=== PATIENT | female | born 1960 | race Caucasian/White ===

== ENCOUNTER 2017-12-28 06:53 | Emergency (ER) | payer BC ==
[2017-12-28] MEDS ORDERED: NS 0.9% 1000 ML* 1,000 ML IV ONE (07:27)
[2017-12-28 07:53] LABS: INR 0.9 (0.77-1.02)
[2017-12-28 07:57] LABS: Hematocrit 40 % (35-47); Hemoglobin 14.3 g/dl (12.0-16.0); Mean Corpuscular HGB Conc 36 g/dl (31-36); Mean Corpuscular Hemoglobin 33 pg (27-31); Mean Corpuscular Volume 93 fL (80-97); Mean Platelet Volume 7.2 um3 (7.4-10.4); Platelet Count 271 10^3/ul (150-450); Red Blood Count 4.32 10^6/ul (4.00-5.40); Red Cell Distribution Width 13 % (10.5-15); White Blood Count 5.2 10^3/ul (3.5-10.8)
[2017-12-28 07:58] LABS: EGFR Non-African American 63.3 (>60)
[2017-12-28 08:02] LABS: Urine Appearance Clear; Urine Blood Negative (Negative); Urine Color Straw; Urine Ketones Negative (Negative); Urine Protein Negative (Negative); Urine Specific Gravity 1.004 (1.010-1.030); Urine Urobilinogen Negative (Negative)
[2017-12-28 09:06] LABS: ABS Basophils 0.1 10^3/ul (0-0.2); ABS Eosinophils 0.1 10^3/ul (0-0.6); ABS Lymphocytes 1.8 10^3/ul (1.0-4.8); ABS Monocytes 0.5 10^3/ul (0-0.8); ABS Neutrophils 2.8 10^3/ul (1.5-7.7); ABS Nucleated RBC 0 10^3/ul; Lymphocyte % 34.9 % (25-47)
[2017-12-28 09:07] LABS: Eosinophil % 1.3 % (0-6); Nucleated Red Blood Cells % 0.1
[2017-12-28] MEDS ORDERED: Iohexol 300* (CONTRAST) 10 ML SDV IV ONE (09:37)
--- NOTE | 2017-12-28 10:20 | RAD ---
INDICATION: Pelvic pain COMPARISON: None TECHNIQUE: Longitudinal and transverse transabdominal scans of the pelvis were obtained. FINDINGS: Uterus: The uterus is normal in size. There are no focal masses. The uterus measures 7.5 x 2.8 x 4.2 cm. Endometrial thickness: The endometrial thickness is measured at 0.3 cm. . Free fluid: There is no significant free fluid . Ovaries: The ovaries are normal in size. The right ovary measures 2.5 x 1.6 x 1.9 cm. The left ovary measures 2.2 x 1.9 x 1.1 cm. . Doppler interrogation demonstrates flow to each ovary. Other: None IMPRESSION: NORMAL STUDY.
--- NOTE | 2017-12-28 10:27 | RAD ---
INDICATION: Lower abdominal pain COMPARISON: None TECHNIQUE: Axial source images were obtained from the hemidiaphragms to the symphysis pubis following administration of oral and intravenous contrast. 91 mL Omnipaque 300 was utilized. Coronal and sagittal reconstructed images were acquired. Lung bases: The lung bases are clear. Liver: The liver is normal in size. There are no masses. There is no ductal dilatation. Gallbladder: There are no calcified gallstones. There is no evidence of wall thickening or pericholecystic fluid. Spleen: The spleen is normal in size. There are no masses. Pancreas: There is no focal pancreatic mass or ductal dilatation. Adrenal glands: There is no evidence of adrenal mass. Kidneys: The kidneys are normal in size and position. There are prompt nephrograms and there is prompt excretion bilaterally. There are no renal parenchymal masses. There is no evidence of nephrolithiasis. Adenopathy: There is no evidence of adenopathy by size criteria. Fluid collections: There are no free or localized fluid collections. Vessels:There are no significant atherosclerotic changes involving the aorta. There is no focal aneurysm. The iliac vessels are normal in caliber. The IVC appears normal. GI tract: There are no acute CT bowel findings. There is no obstruction. The stomach and small bowel appear normal. There are no acute CT abnormalities the colon. There is mild colonic redundancy. There are scant diverticula without CT findings of acute diverticulitis. Pelvic organs: The uterus and adnexa appear normal Bladder: There are no bladder masses. Abdominal and pelvic soft tissues: The extraperitoneal abdominal and pelvic soft tissues appear normal.. Osseous structures: There are no acute osseous findings. Other: None IMPRESSION: NO ACUTE CT FINDINGS. NO MASS OR INFLAMMATORY CHANGES.
[2017-12-28 11:52] VITALS: BP 119/77
--- NOTE | 2017-12-28 12:59 | ED ---
Tomi Bush Julia, scribed for Wil Vera MD on 12/28/17 at 0737 . Abdominal Pain/Female - HPI Summary HPI Summary: This patient is a 57 year old F presenting to [facility] with a chief complaint of constant lower abdominal pain since 12/25/17. Pain described as cramping and achy , that moves throughout her lower abdomen. Pain is 6/10 at worst, and currently 4/10. Reports urinary frequency. Denies burning with urination, back pain, changes in appetite, bloody stool, fever, and chills. Pain unchanged by walking. Symptoms are not worsened or relieved by anything. She has been taking Ciprofloxacin since 12/26/17 because she suspected a UTI, since current symptoms are similar. She states Ciprofloxacin typically works, but has not recently relieved symptoms. She reports loose stools that began after taking Ciprofloxacin. Denies previous abdominal surgeries. - History of Current Complaint Chief Complaint: EDAbdPain Stated Complaint: ABD PAIN Time Seen by Provider: 12/28/17 07:17 Hx Obtained From: Patient Onset/Duration: Lasting Days Timing: Constant Severity Initially: Mild Severity Currently: Mild Pain Intensity: 4 Pain Scale Used: 0-10 Numeric Location: Suprapubic, Other - lower Radiates: No Character: Cramping Aggravating Factor(s): Nothing Alleviating Factor(s): Nothing Associated Signs and Symptoms: Positive: Urinary Symptoms Simlar Episode/Dx as:: UTI Allergies/Adverse Reactions: Allergies Allergy/AdvReac Type Severity Reaction Status Date / Time Sulfa (Sulfonamide Allergy Rash Verified 12/28/17 07:01 Antibiotics) Home Medications: Home Medications Ciprofloxacin HCl [Cipro] 250 mg PO BID 12/28/17 [History Confirmed 12/28/17] PMH/Surg Hx/FS Hx/Imm Hx Endocrine/Hematology History: Denies: Hx Diabetes, Hx Thyroid Disease Cardiovascular History: Denies: Hx Hypertension, Hx Pacemaker/ICD Respiratory History: Denies: Hx Asthma, Hx Chronic Obstructive Pulmonary Disease (COPD) GI History: Denies: Hx Ulcer Sensory History: Reports: Hx Contacts or Glasses - CONTACTS MOSTLY, BUT DOES WEAR GLASSESS Denies: Hx Hearing Aid Opthamlomology History: Reports: Hx Contacts or Glasses - CONTACTS MOSTLY, BUT DOES WEAR GLASSESS Psychiatric History: Denies: Hx Panic Disorder - Cancer History Cancer Type, Location and Year: [facility] 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 SKIN CANCER REOMVED - [facility]IP Hx Anesthesia Reactions: No Infectious Disease History: No Infectious Disease History: Reports: Hx Shingles - 2007 Denies: Hx Clostridium Difficile, Hx Hepatitis, Hx Human Immunodeficiency Virus (HIV), Hx of Known/Suspected MRSA, Hx Tuberculosis, Hx Known/Suspected VRE , Hx Known/Suspected VRSA, History Other Infectious Disease, Traveled Outside the [place] in Last 30 Days - Family History Known Family History: Positive: Other - positive FM for ecchymosis, mother - colon CA - Social History Alcohol Use: Occasionally Substance Use Type: Reports: None Smoking Status (MU): Never Smoked Tobacco Review of Systems Negative: Fever, Chills Gastrointestinal: Negative - bloody stool and changes in appetite Positive: Abdominal Pain, Diarrhea - "loose stool". Negative: Vomiting, Nausea Positive: frequency. Negative: burning, dysuria Negative: Myalgia All Other Systems Reviewed And Are Negative: Yes Physical Exam - Summary Physical Exam Summary: General: well-appearing, no pain distress Skin: warm, color reflects adequate perfusion, dry Head: normal Eyes: EOMI, JERROD ENT: normal Neck: supple, nontender Respiratory: CTA, breath sounds present Cardiovascular: RRR Abdomen: soft, mild tenderness LLQ Bowel: present Musculoskeletal: normal, strength/ROM intact Neurological: sensory/motor intact, A&O x3 Psychological: affect/mood appropriate Triage Information Reviewed: Yes Vital Signs On Initial Exam: Initial Vitals Temp Pulse Resp BP Pulse Ox 99.2 F 80 18 160/83 99 12/28/17 06:54 12/28/17 06:54 12/28/17 06:54 12/28/17 06:54 12/28/17 06:54 Vital Signs Reviewed: Yes Diagnostics - Vital Signs Vital Signs Temp Pulse Resp BP Pulse Ox 12/28/17 06:54 99.2 F 80 18 160/83 99 - Laboratory Lab Results: Lab Results 12/28/17 12/28/17 12/28/17 Range/Units 07:33 07:33 07:33 WBC 5.2 (3.5-10.8) 10^3/ul RBC 4.32 (4.00-5.40) 10^6/ul Hgb 14.3 (12.0-16.0) g/dl Hct 40 (35-47) % MCV 93 (80-97) fL MCH 33 H (27-31) pg MCHC 36 (31-36) g/dl RDW 13 (10.5-15) % Plt Count 271 (150-450) 10^3/ul MPV 7.2 L (7.4-10.4) um3 Neut % (Auto) 53.2 (38-83) % Lymph % (Auto) 34.9 (25-47) % Mcintosh % (Auto) 9.5 H (0-7) % Eos % (Auto) 1.3 (0-6) % Baso % (Auto) 1.1 (0-2) % Absolute Neuts (auto) 2.8 (1.5-7.7) 10^3/ul Absolute Lymphs (auto) 1.8 (1.0-4.8) 10^3/ul Absolute Monos (auto) 0.5 (0-0.8) 10^3/ul Absolute Eos (auto) 0.1 (0-0.6) 10^3/ul Absolute Basos (auto) 0.1 (0-0.2) 10^3/ul Absolute Nucleated RBC 0 10^3/ul Nucleated RBC % 0.1 INR (Anticoag Therapy) 0.90 (0.77-1.02) APTT 30.2 (26.0-36.3) seconds Sodium 135 (135-145) mmol/L Potassium 3.8 (3.5-5.0) mmol/L Chloride 100 L (101-111) mmol/L Carbon Dioxide 26 (22-32) mmol/L Anion Gap 9 (2-11) mmol/L BUN 11 (6-24) mg/dL Creatinine 0.91 (0.51-0.95) mg/dL Est GFR ( Amer) 76.6 (>60) Est GFR (Non-Af Amer) 63.3 (>60) BUN/Creatinine Ratio 12.1 (8-20) Glucose 97 (70-100) mg/dL Lactic Acid (0.5-2.0) mmol/L Calcium 9.2 (8.6-10.3) mg/dL Total Bilirubin 0.80 (0.2-1.0) mg/dL AST 26 (13-39) U/L ALT 17 (7-52) U/L Alkaline Phosphatase 45 (34-104) U/L C-Reactive Protein < 1.00 (<8.01) mg/L Total Protein 6.6 (6.4-8.9) g/dL Albumin 4.4 (3.2-5.2) g/dL Globulin 2.2 (2-4) g/dL Albumin/Globulin Ratio 2.0 (1-3) Lipase < 10 L (11.0-82.0) U/L Urine Color Urine Appearance Urine pH (5-9) Ur Specific [place] (1.010-1.030) Urine Protein (Negative) Urine Ketones (Negative) Urine Blood (Negative) Urine Nitrate (Negative) Urine Bilirubin (Negative) Urine Urobilinogen (Negative) Ur Leukocyte Esterase (Negative) Urine Glucose (Negative) 12/28/17 12/28/17 Range/Units 07:33 07:52 WBC (3.5-10.8) 10^3/ul RBC (4.00-5.40) 10^6/ul Hgb (12.0-16.0) g/dl Hct (35-47) % MCV (80-97) fL MCH (27-31) pg MCHC (31-36) g/dl RDW (10.5-15) % Plt Count (150-450) 10^3/ul MPV (7.4-10.4) um3 Neut % (Auto) (38-83) % Lymph % (Auto) (25-47) % Mcintosh % (Auto) (0-7) % Eos % (Auto) (0-6) % Baso % (Auto) (0-2) % Absolute Neuts (auto) (1.5-7.7) 10^3/ul Absolute Lymphs (auto) (1.0-4.8) 10^3/ul Absolute Monos (auto) (0-0.8) 10^3/ul Absolute Eos (auto) (0-0.6) 10^3/ul Absolute Basos (auto) (0-0.2) 10^3/ul Absolute Nucleated RBC 10^3/ul Nucleated RBC % INR (Anticoag Therapy) (0.77-1.02) APTT (26.0-36.3) seconds Sodium (135-145) mmol/L Potassium (3.5-5.0) mmol/L Chloride (101-111) mmol/L Carbon Dioxide (22-32) mmol/L Anion Gap (2-11) mmol/L BUN (6-24) mg/dL Creatinine (0.51-0.95) mg/dL Est GFR ( Amer) (>60) Est GFR (Non-Af Amer) (>60) BUN/Creatinine Ratio (8-20) Glucose (70-100) mg/dL Lactic Acid 0.7 (0.5-2.0) mmol/L Calcium (8.6-10.3) mg/dL Total Bilirubin (0.2-1.0) mg/dL AST (13-39) U/L ALT (7-52) U/L Alkaline Phosphatase (34-104) U/L C-Reactive Protein (<8.01) mg/L Total Protein (6.4-8.9) g/dL Albumin (3.2-5.2) g/dL Globulin (2-4) g/dL Albumin/Globulin Ratio (1-3) Lipase (11.0-82.0) U/L Urine Color Straw Urine Appearance Clear Urine pH 6.0 (5-9) Ur Specific [place] 1.004 L (1.010-1.030) Urine Protein Negative (Negative) Urine Ketones Negative (Negative) Urine Blood Negative (Negative) Urine Nitrate Negative (Negative) Urine Bilirubin Negative (Negative) Urine Urobilinogen Negative (Negative) Ur Leukocyte Esterase Negative (Negative) Urine Glucose Negative (Negative) Result Diagrams: 12/28/17 07:33 12/28/17 07:33 Lab Statement: Any lab studies that have been ordered have been reviewed, and results considered in the medical decision making process. - CT A/P CT Interpretation Completed By: Radiologist - NO ACUTE CT FINDINGS. NO MASS OR INFLAMMATORY CHANGES. ED Physician has reviewed this report. - Additional Comments Diagnostic Additional Comments: A Pelvis US reveals, as per radiologist: NORMAL STUDY. ED Physician has reviewed this report. Abdominal Pain Fem Course/Dx - Course Course Of Treatment: DISCUSSED RESULTS WITH THE PATIENT. DISCUSSED DIVERTICULOSIS VS DIVERTICULITIS. AT THIS TIME, THE PATIENT PREFERS TO TREAT FOR DIVERTICULITIS. WILL F/U PMD; RETURN TO ED IF WORSE. - Diagnoses Provider Diagnoses: Left lower quadrant pain Discharge - Sign-Out/Discharge Documenting (check all that apply): Discharge/Admit/Transfer - Discharge Plan Condition: Stable Disposition: HOME Prescriptions: Ciprofloxacin TAB* [Cipro 500 MG TAB*] 500 mg PO BID #14 tab metroNIDAZOLE [Flagyl 500 MG TAB] 500 mg PO TID #21 tab Patient Education Materials: Diverticulitis (ED), Diverticulitis Diet (ED), Abdominal Pain (ED) Referrals: Katharine Phillips NP [Primary Care Provider] - Additional Instructions: FOLLOW UP WITH YOUR DOCTOR. RETURN TO THE EMERGENCY DEPARTMENT FOR ANY WORSENING OF YOUR CONDITION; PAIN, FEVER, YOU FEEL ILL OR QUESTIONS OR CONCERNS. - Billing Disposition and Condition Condition: STABLE Disposition: Home The documentation as recorded by the Tomi bates Julia accurately reflects the service I personally performed and the decisions made by me, Wil Vera MD.
== END 2017-12-28 11:51 | disposition home or self-care (01) ==
LOC: ED 06:53
DX: R10.32 Left lower quadrant pain (principal); R35.0 Frequency of micturition; Z88.2 Allergy status to sulfonamides; Z85.828 Personal history of other malignant neoplasm of skin; Z80.0 Family history of malignant neoplasm of digestive organs
CPT/HCPCS: 36415; 74177; 76856; 80053; 81003; 83605; 83690; 85025; 85610; 85730; 86140; 96360; 99282; Q9967

== ENCOUNTER 2018-03-25 08:08 | Day surgery (SDC) | payer BC ==
[~2018-03-25 08:08] MED LIST: Acetaminophen TAB* 325 MG PO PRN; Buffered Lidocaine 0.9% SYRIN* 5 ML/SYR SYRINGE INTRADERM ONE
[2018-03-25] MEDS ORDERED: Ketorolac 0.5% OPHTH (NF) 0.5 % 5 ML BTL ONE (09:07)
[2018-03-25] MEDS ORDERED: Lidocaine 2% EPI 1:200000 MPF*10-20 ML VIAL ONE (09:07)
[2018-03-25] MEDS ORDERED: Cyclopentolate 1% OPTH.SOL* 2 ML BTL ONE (09:07)
[2018-03-25] MEDS ORDERED: Phenylephrine 2.5% OPTH.SOL* 2 ML BTL ONE (09:07)
[2018-03-25] MEDS ORDERED: Lidocaine 1%* 5 ML VIAL ONE (09:07)
[2018-03-25] MEDS ORDERED: Povidone Iodine 5% OPTH* 30 ML BTL ONE (09:07)
[2018-03-25] MEDS ORDERED: acetaZOLAMIDE TAB* 250 MG ONE (09:07)
[2018-03-25] MEDS ORDERED: Neomycin/Polymy/Dex OPTH.SUSP* MAXITROL 0.1% 5 ML ONE (09:07)
[2018-03-25] MEDS ORDERED: Proparacaine 0.5% OPHTH.SOL* 15 ML BTL ONE (09:08)
[2018-03-25] MEDS ORDERED: Midazolam* 1 MG/ML 2 ML VIAL (2 MG) ONE ×2 (09:31→10:03)
[2018-03-25] MEDS ORDERED: fentaNYL* 50 MCG/ML 2 ML VIAL (100 MCG VIAL) ONE (09:59)
[2018-03-25 10:19] VITALS: BP 132/58
--- NOTE | 2018-03-26 00:54 | OP ---
DATE OF OPERATION: 03/25/18 - [facility] DATE OF : 56 SURGEON: Christophe Perez MD PREOPERATIVE DIAGNOSIS: Cataract, right eye. POSTOPERATIVE DIAGNOSIS: Cataract, right eye. OPERATIVE PROCEDURE: Extracapsular cataract extraction with intraocular lens implant right eye. DESCRIPTION OF PROCEDURE: The patient was brought to the operating room after being given 1/2% Alcaine with epinephrine drops in the preoperative area. The eye was prepped and draped in the usual sterile fashion. Sterile drape and eyelid speculum were placed. Again, topical 1/2% Alcaine with epinephrine was given. A paracentesis incision was made at the 9 o'clock position with the No.75 blade. Clear cornea incision 2.2 x 2.2-mm was created at the 12 o'clock position starting at the anterior limbus using the 2.2-mm keratome. The anterior chamber was irrigated with 0.4 mL of 1% non-preservative intracameral lidocaine and filled with DisCoVisc. A capsulorrhexis was completed using the cystotome and the Utrata forceps. Hydrodissection was performed with balanced salt solution. The lens nucleus was removed with the Phacoemulsification handpiece without incident. Cortex was removed with the irrigation-aspiration handpiece. The capsular bag was re-inflated using DisCoVisc and a [id number] implant was inserted with the shooter. The irrigation-aspiration handpiece was used to remove all residual DisCoVisc. The eye was refilled with balanced salt solution and the wound checked and found to be watertight. Topical Maxitrol drops were given. [id number]/[facility] #: [id number] [facility] HOSPITALEnmanuel
== END 2018-03-25 10:22 | disposition home or self-care (01) ==
LOC: OREAST 08:08
PROVIDERS: ATTEND Specialist
DX: H25.811 Combined forms of age-related cataract, right eye (principal); H04.123 Dry eye syndrome of bilateral lacrimal glands
CPT/HCPCS: A9270-GY; J2250; J3010; V2632

== ENCOUNTER 2018-04-08 09:19 | Day surgery (SDC) | payer BC ==
[2018-04-08] MEDS ORDERED: Midazolam* 1 MG/ML 5 ML VIAL (5 MG) ONE (11:50)
[2018-04-08] MEDS ORDERED: Propofol* 10 MG/ML 20 ML BTL IV PUSH ONE (11:58)
[2018-04-08 12:18] VITALS: BP 104/68
[2018-04-08] MEDS ORDERED: Lidocaine 1%* 5 ML VIAL ONE (15:40)
[2018-04-08] MEDS ORDERED: Neomycin/Polymy/Dex OPTH.SUSP* MAXITROL 0.1% 5 ML ONE (15:40)
[2018-04-08] MEDS ORDERED: Phenylephrine 2.5% OPTH.SOL* 2 ML BTL ONE (15:40)
[2018-04-08] MEDS ORDERED: Ketorolac 0.5% OPHTH (NF) 0.5 % 5 ML BTL ONE (15:40)
[2018-04-08] MEDS ORDERED: Povidone Iodine 5% OPTH* 30 ML BTL ONE (15:40)
[2018-04-08] MEDS ORDERED: Proparacaine 0.5% OPHTH.SOL* 15 ML BTL ONE (15:40)
[2018-04-08] MEDS ORDERED: Cyclopentolate 1% OPTH.SOL* 2 ML BTL ONE (15:40)
[2018-04-08] MEDS ORDERED: acetaZOLAMIDE TAB* 250 MG ONE (15:40)
[2018-04-08] MEDS ORDERED: Lidocaine 2% EPI 1:200000 MPF*10-20 ML VIAL ONE (15:40)
--- NOTE | 2018-04-09 03:00 | OP ---
DATE OF OPERATION: 04/08/18 - [facility] DATE OF : 56 SURGEON: Christophe Perez M.D. PREOPERATIVE DIAGNOSIS: Cataract, left eye. POSTOPERATIVE DIAGNOSIS: Cataract, left eye. OPERATIVE PROCEDURE: Extracapsular cataract extraction with intraocular lens implant left eye. DESCRIPTION OF PROCEDURE: The patient was brought to the operating room after being given 1/2% Alcaine with epinephrine drops in the preoperative area. The eye was prepped and draped in the usual sterile fashion. Sterile drape and eyelid speculum were placed. Again, topical 1/2% Alcaine with epinephrine was given. A paracentesis incision was made at the 3 o'clock position with the No.75 blade. Clear cornea incision 2.2 x 2.2-mm was created at the 6 o'clock position starting at the anterior limbus using the 2.2-mm keratome. The anterior chamber was irrigated with 0.4 mL of 1% non-preservative intracameral lidocaine and filled with DisCoVisc. A capsulorrhexis was completed using the cystotome and the Utrata forceps. Hydrodissection was performed with balanced salt solution. The lens nucleus was removed with the Phacoemulsification handpiece without incident. Cortex was removed with the irrigation-aspiration handpiece. The capsular bag was re-inflated using DisCoVisc and an [id number] implant was inserted with the shooter. The irrigation-aspiration handpiece was used to remove all residual DisCoVisc. The eye was refilled with balanced salt solution and the wound checked and found to be watertight. Topical Maxitrol drops were given. [id number]/[facility] #: [id number] [facility]
== END 2018-04-08 12:27 | disposition home or self-care (01) ==
LOC: OREAST 09:19
PROVIDERS: ATTEND Specialist
DX: H25.812 Combined forms of age-related cataract, left eye (principal); H04.123 Dry eye syndrome of bilateral lacrimal glands
CPT/HCPCS: A9270-GY; J2250; J2704; V2632

== ENCOUNTER 2018-08-28 16:24 | Emergency (ER) | payer BC ==
--- NOTE | 2018-08-28 18:47 | ED ---
Upper Extremity Pain - HPI Summary HPI Summary: Patient had radial and ulnar surgery 8 days ago and got cast wet in the bathtub tonight. Patient called orthopedics and was told to come to the ED to get cast removed. No other complaints injuries or symptoms. - History of Current Complaint Chief Complaint: EDExtremityUpper Stated Complaint: POSS CAST REMOVAL/GOT WET Time Seen by Provider: 08/28/18 17:18 Hx Obtained From: Patient Mechanism Of Injury: Other Onset/Duration: Started Hours Ago Associated Signs & Symptoms: Positive: Negative - Allergies/Home Medications Allergies/Adverse Reactions: Allergies Allergy/AdvReac Type Severity Reaction Status Date / Time Sulfa (Sulfonamide Allergy Rash Verified 08/13/18 09:21 Antibiotics) Home Medications: Home Medications Ascorbic Acid TAB* [Vitamin C TAB*] 100 mg PO DAILY 08/28/18 [History Confirmed 08/28/18] Calcium Carbonate [Calcium] 100 mg PO DAILY 08/28/18 [History Confirmed 08/28/18 ] Cholecalciferol TAB* [Vitamin D TAB*] 1,000 unit PO DAILY 08/28/18 [History Confirmed 08/28/18] PMH/Surg Hx/FS Hx/Imm Hx Endocrine/Hematology History: Denies: Hx Diabetes, Hx Thyroid Disease Cardiovascular History: Denies: Hx Hypertension, Hx Pacemaker/ICD Respiratory History: Denies: Hx Asthma, Hx Chronic Obstructive Pulmonary Disease (COPD) GI History: Denies: Hx Ulcer Comment Only: Other GI Disorders - 1 EPISODE OF DIVERTICULITIS 01/2018 OK NOW- NO NEW EPISODES History: Denies: Hx Renal Disease Musculoskeletal History: Reports: 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 Sensory History: Reports: Hx Cataracts - BILATERAL-BILATERAL CATARACT SURGERY COMPLETED IN MAR AND APR., Hx Contacts or Glasses - SOMETIMES WEARS CONTACTS, BUT DOES WEAR GLASSESS FOR READING Denies: Hx Glaucoma, Hx Deafness, Hx Hearing Aid Opthamlomology History: Reports: Hx Cataracts - BILATERAL-BILATERAL CATARACT SURGERY COMPLETED IN MAR AND APR., Hx Contacts or Glasses - SOMETIMES WEARS CONTACTS, BUT DOES WEAR GLASSESS FOR READING Denies: Hx Glaucoma Neurological History: Denies: Hx Dementia Psychiatric History: Denies: Hx Panic Disorder - Cancer History Cancer Type, 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 SKIN CANCER REMOVAL FROM HELIX AND BACK - [place]-2013. BILATERAL CATARACT SURGERY-2018. 2013- TIBIAL FRACTURE REPAIR Hx Anesthesia Reactions: No Infectious Disease History: No Infectious Disease History: Reports: Hx Shingles - 2007 Denies: Hx Clostridium Difficile, Hx Hepatitis, Hx Human Immunodeficiency Virus (HIV), Hx of Known/Suspected MRSA, Hx Tuberculosis, Hx Known/Suspected VRE , Hx Known/Suspected VRSA, History Other Infectious Disease, Traveled Outside the [place] in Last 30 Days - Family History Known Family History: Positive: Other - positive [facility] for ecchymosis, mother - colon CA - Social History Alcohol Use: Occasionally Alcohol Amount: 6-8 DRINKS/WEEKLY Substance Use Type: Reports: None Smoking Status (MU): Never Smoked Tobacco Have You Smoked in the Last Year: No Review of Systems Constitutional: Negative Eyes: Negative ENT: Negative Cardiovascular: Negative Respiratory: Negative Gastrointestinal: Negative Genitourinary: Negative Musculoskeletal: Negative Skin: Negative Neurological: Negative Psychological: Normal All Other Systems Reviewed And Are Negative: Yes Physical Exam - Summary Physical Exam Summary: Cast wet on proximal portion. Triage Information Reviewed: Yes Vital Signs On Initial Exam: Initial Vitals Temp Pulse Resp BP Pulse Ox 98.1 F 100 16 157/104 97 08/28/18 16:32 08/28/18 16:32 08/28/18 16:32 08/28/18 16:32 08/28/18 16:32 Vital Signs Reviewed: Yes Appearance: Positive: Well-Appearing Skin: Positive: Warm Head/Face: Positive: Normal Head/Face Inspection Eyes: Positive: Normal Neck: Positive: Supple Respiratory/Lung Sounds: Positive: Clear to Auscultation Cardiovascular: Positive: Normal Abdomen Description: Positive: Nontender Musculoskeletal: Positive: Normal Neurological: Positive: Normal Psychiatric: Positive: Normal AVPU Assessment: Alert - Erin Coma Scale Best Eye Response: 4 - Spontaneous Best Motor Response: 6 - Obeys Commands Best Verbal Response: 5 - Oriented Coma Scale Total: 15 Procedures - Splinting 1 Location: left forearm and wrist Hand-Made Type: orthoglass Splint: sugar-tong Pre-Proc Neuro Vasc Exam: normal Post-Proc Neuro Vasc Exam: normal Diagnostics - Vital Signs Vital Signs Temp Pulse Resp BP Pulse Ox 08/28/18 16:32 98.1 F 100 16 157/104 97 - Laboratory Lab Statement: Any lab studies that have been ordered have been reviewed, and results considered in the medical decision making process. Course/Dx - Course Course Of Treatment: Patient had radial and ulnar surgery 8 days ago and got cast wet in the bathtub tonight. Patient called orthopedics and was told to come to the ED to get cast removed. No other complaints injuries or symptoms. Physical exam:Cast wet on proximal portion. Cast removed. Surgical site looks clean and dry and intact. No evidence of erythema, purulent drainage, ecchymosis. Tong splint applied. Patient has appointment with orthopedic on Friday for cast replacement - Diagnoses Provider Diagnoses: Cast removal Discharge - Sign-Out/Discharge Documenting (check all that apply): Patient Departure Patient Received Moderate/Deep Sedation with Procedure: No - Discharge Plan Condition: Stable Disposition: HOME Patient Education Materials: Splint Care (ED) Referrals: Katharine Phillips NP [Primary Care Provider] - Additional Instructions: Follow-up with orthopedics at your scheduled appointment on Friday for cast replacement. Return to the ED for any worsening symptoms. - Billing Disposition and Condition Condition: STABLE Disposition: Home
[2018-08-28 19:09] VITALS: BP 128/83
== END 2018-08-28 19:08 | disposition home or self-care (01) ==
LOC: ED 16:24
DX: Z46.89 Encounter for fitting and adjustment of other specified devices (principal); Z88.2 Allergy status to sulfonamides
CPT/HCPCS: 99282